=== PATIENT | male | born 1990 | race Caucasian/White ===

== ENCOUNTER 2025-09-13 11:37 | Emergency (ER) | payer SELFPAY ==
[~2025-09-13 11:37] MED LIST: Iopamidol 370 76% 100 ML VIAL ONE
[2025-09-13 12:49] LABS: INR-International Normal Ratio 0.9; Prothrombin Time 12.5 sec (12.0-14.7)
[2025-09-13 12:50] LABS: PTT 34.5 sec (22.9-36.1)
[2025-09-13 13:13] LABS: #Basophils 0.4 thou/uL (0.0-0.2); #Eosinophils 0.2 thou/uL (0.0-0.7); #Lymphocytes 3.5 thou/uL (1.20-3.40); #Monocytes 0.9 thou/uL (0.11-0.59); #Neutrophils 9.7 thou/uL (1.40-6.50); %Basophils 2.8 % (0.0-1.0); %Eosinophils 1.5 % (0.0-10.0); %Lymphocytes 23.8 % (21.0-51.0); %Monocytes 5.9 % (0.0-10.0); %Neutrophils 66.0 % (42.0-75.0); Hematocrit 35.3 % (42.0-52.0); Hemoglobin 12.6 g/dL (14.0-18.0); Mean Corpuscular Hemoglobin 29.8 pg (27.0-31.0); Mean Corpuscular Volume 83.1 fl (78.0-98.0); Platelet Count 504 10x3/uL (130-400); Red Blood Cell (RBC) Count 4.24 mill/uL (4.70-6.10); White Blood Cell (WBC) Count 14.7 10x3/uL (4.8-10.8)
[2025-09-13 13:57] LABS: ALT (SGPT) 36 U/L (Less than 45); AST (SGOT) 30 U/L (11-34); Albumin 3.3 g/dL (3.1-4.5); Alkaline Phosphatase 85 U/L (40-110); Anion Gap 14 mmol/L (10-20); BUN (Urea Nitrogen) 6 mg/dL (8.9-20.6); Bilirubin, Total 0.1 mg/dL (0.3-1.2); Calc. Creatinine Clearance 0 mL/min (70-130); Calcium 9.4 mg/dL (7.8-10.44); Carbon Dioxide 23 mmol/L (22-29); Chloride 104 mmol/L (98-107); Globulin 4.4 g/dL (2.4-3.5); Glucose 89 mg/dL (70-105); Potassium 3.8 mmol/L (3.5-5.1); Sodium 137 mmol/L (136-145)
[2025-09-13 14:43] LABS: Glucose, Urine (Dipstick) Negative (Negative); Leukocyte Small (Negative); Protein, Urine (Dipstick) Negative (Neg-Trace); Specific Gravity, Urine 1.020 (1.005-1.030)
[2025-09-13 15:03] LABS: Bacteria/HPF Rare-Few HPF (None Seen); CAUTI Indications for Culture Pelvic or flank pain; WBC/HPF 21-50 HPF (0-3)
[2025-09-13 15:07] LABS: Urine Culture Reflex Yes Yes
== END 2025-09-13 15:10 | disposition home or self-care (01) ==
LOC: NAV ERS 11:37
DX: R31.9 Hematuria, unspecified (principal); F17.210 Nicotine dependence, cigarettes, uncomplicated
CPT/HCPCS: 74177; 80053; 81001; 85025; 85610; 85730; 87086; J7030; Q9967